=== PATIENT | male | born 2000 | race Hispanic/Latino ===

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

== ENCOUNTER 2023-01-13 18:00 | Emergency (ER) | payer OTHER ==
[2023-01-13] MEDS ORDERED: Boostrix 0.5 ML (Tdap) VIAL (>/=7 yrs of age) ONE (19:51)
== END 2023-01-13 20:01 | disposition home or self-care (01) ==
LOC: ERS 18:00
DX: S40.812A Abrasion of left upper arm, initial encounter (principal); S29.8XXA Other specified injuries of thorax, initial encounter; V89.2XXA Person injured in unspecified motor-vehicle accident, traffic, initial encounter; Z23 Encounter for immunization
CPT/HCPCS: 71045; 90471; 90715